=== PATIENT | female | born 2005 | race African-American/Black ===

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

== ENCOUNTER 2024-04-04 22:00 | Emergency (ER) | payer OTHER ==
[~2024-04-04] VITALS: Ht 157.5 cm; Wt 50.0 kg
[~2024-04-04 22:00] MED LIST changes: -ALBU2.5V39 NEB; -GUAIFDM PO; +NYST30CR9 TP; +OSEL75 PO; -PROM473S6 PO; -SERT-162 PO
[2024-04-04] MEDS ORDERED: LEVALBUTEROL 1.25 MG/0.5 ML NEB SOLUTION NEB ONE (22:15)
[2024-04-04] MEDS ORDERED: ALBUTEROL SULFATE 2.5 MG/0.5 ML 5 ML NEB SOLUTION NEB ONE (22:15)
[2024-04-04] MEDS: IPRATROPIUM BROMIDE 0.5 MG/2.5 ML NEB SOLUTION NEB ONE (22:26)
[2024-04-04] MEDS: SODIUM CHLORIDE 0.9% 1,000 ML IV ONE (22:27)
[2024-04-04] MEDS: LEVALBUTEROL 1.25 MG/0.5 ML NEB SOLUTION NEB ONE (22:27)
[2024-04-04 22:30] VITALS: PULSE 127; RESP 24; O2SAT 89
[2024-04-04] MEDS: MethylPREDNISolone SOD SUCC 125 MG/2 ML VIAL IVP ONE (22:30)
[2024-04-04 23:07] VITALS: BP 129/79; TEMP 98
[2024-04-04 23:30] VITALS: PULSE 125; RESP 22; O2SAT 98
[2024-04-04] MEDS: ALBUTEROL SULFATE HFA 90 MCG/PUFF 8 GM INHALER IH ONE (23:36)
[2024-04-04 23:40] VITALS: PULSE 123; RESP 22; O2SAT 97
[2024-04-04] MEDS ORDERED: ALBU18HF12 IH (23:41)
== END 2024-04-04 23:47 | disposition left against medical advice (07) ==
LOC: EMS 22:01
DX: J45.901 Unspecified asthma with (acute) exacerbation (principal); F32.A Depression, unspecified; F12.90 Cannabis use, unspecified, uncomplicated; Z91.010 Allergy to peanuts
CPT/HCPCS: 99291; 96374; 96361; 94640; 71045; 93005; J2919; J3535; 94644; Q9967; Z7610

== ENCOUNTER 2024-04-28 12:06 | Emergency (ER) | payer OTHER ==
[~2024-04-28] VITALS: Ht 154.9 cm; Wt 50.0 kg
[~2024-04-28 12:06] MED LIST changes: +ARIP2TAB27 PO; +BENZ100C68 PO; +DIVA-112 PO; +LEVO-72 PO; +LITH300C3 PO; +MONT-35 PO; -OSEL75 PO
[2024-04-28 12:12] VITALS: BP 112/68; PULSE 110; RESP 18; TEMP 98.1
[2024-04-28 12:44] LABS: BASOPHILS % (AUTO) 0.7 % (0.0-2.0); EOSINOPHILS % (AUTO) 6.9 % (1.0-6.0); HEMATOCRIT 38.6 % (36-46); HEMOGLOBIN 12.5 g/dL (12.0-16.0); LYMPHOCYTES # (AUTO) 2.3 K/uL (1.0-4.8); LYMPHOCYTES % (AUTO) 43.2 % (22.0-44.0); MEAN CORPUSCULAR HEMOGLOBIN 30.6 pg (26.0-34.0); MEAN CORPUSCULAR HGB CONC 32.5 G/dL (31.0-37.0); MEAN CORPUSCULAR VOLUME 94 fL (80-100); MONOCYTES # (AUTO) 0.4 K/uL (0.1-1.0); MONOCYTES % (AUTO) 8.4 % (2.0-9.0); NEUTROPHILS # (AUTO) 2.1 K/uL (1.8-7.7); NEUTROPHILS % (AUTO) 40.8 % (40.0-70.0); PLATELET COUNT (AUTO) 241 K/uL (150-450); RED CELL DISTRIBUTION WIDTH 15.5 % (11.5-14.5); WHITE BLOOD COUNT (AUTO) 5.2 K/uL (4.5-11.0)
[2024-04-28 12:56] LABS: ANION GAP 10 mmol/L (8-16); CALCIUM, TOTAL 8.6 mg/dL (8.8-10.5); CARBON DIOXIDE 27 mmol/L (22-29); CHLORIDE 112 mmol/L (98-107); CREATININE 0.75 mg/dL (0.60-1.30); GLOMERULAR FILTR. RATE CALC > 60 mL/min (>60); GLUCOSE,RANDOM 84 mg/dL (70-110); POTASSIUM 4.1 mmol/L (3.5-5.1); SODIUM SERUM 148 mmol/L (136-145); UREA NITROGEN, BLOOD 4 mg/dL (7-18)
[2024-04-28 12:59] LABS: ALCOHOL, BLOOD (SERUM) 6 mg/dL (0-10)
== END 2024-04-28 13:22 | disposition left against medical advice (07) ==
LOC: EMS 12:06
DX: R42 Dizziness and giddiness (principal); F32.A Depression, unspecified; R44.1 Visual hallucinations; Z79.899 Other long term (current) drug therapy; Z53.21 Procedure and treatment not carried out due to patient leaving prior to being seen by health care provider
CPT/HCPCS: 36415; 80048; 85025; 84703; G0480

== ENCOUNTER 2024-09-12 18:41 | Emergency (ER) | payer OTHER ==
[~2024-09-12] VITALS: Ht 160 cm; Wt 52.3 kg
[2024-09-12] MEDS: HYDROmorphone HCL 2 MG/ML SYRINGE IVP ONE (19:57)
[2024-09-12] MEDS: FAMOTIDINE 20 MG/2 ML VIAL IVP ONE (19:57)
[2024-09-12 20:02] VITALS: TEMP 98
[2024-09-12 20:03] LABS: BASOPHILS % (AUTO) 0.7 % (0.0-2.0); EOSINOPHILS % (AUTO) 2.6 % (1.0-6.0); HEMOGLOBIN 11.5 g/dL (12.0-16.0); LYMPHOCYTES % (AUTO) 24.7 % (22.0-44.0); MEAN CORPUSCULAR HEMOGLOBIN 30.9 pg (26.0-34.0); MEAN CORPUSCULAR HGB CONC 32.9 G/dL (31.0-37.0); MEAN CORPUSCULAR VOLUME 94 fL (80-100); MONOCYTES # (AUTO) 0.5 K/uL (0.1-1.0); MONOCYTES % (AUTO) 5.6 % (2.0-9.0); NEUTROPHILS # (AUTO) 5.3 K/uL (1.8-7.7); NEUTROPHILS % (AUTO) 66.4 % (40.0-70.0); PLATELET COUNT (AUTO) 331 K/uL (150-450); RED BLOOD CELL COUNT(AUTO) 3.73 MIL/uL (4.00-5.20); RED CELL DISTRIBUTION WIDTH 14.1 % (11.5-14.5); WHITE BLOOD COUNT (AUTO) 8.1 K/uL (4.5-11.0)
[2024-09-12] MEDS: CAPSAICIN 0.075% 60 GM CREAM TP ONE (20:04)
[2024-09-12 20:26] LABS: ANION GAP 13 mmol/L (8-16); CALCIUM, TOTAL 8.8 mg/dL (8.8-10.5); CARBON DIOXIDE 23 mmol/L (22-29); CHLORIDE 102 mmol/L (98-107); CREATININE 0.55 mg/dL (0.60-1.30); GLOMERULAR FILTR. RATE CALC > 60 mL/min (>60); GLUCOSE,RANDOM 71 mg/dL (70-110); POTASSIUM 3.6 mmol/L (3.5-5.1); SODIUM SERUM 138 mmol/L (136-145); UREA NITROGEN, BLOOD 4 mg/dL (7-18)
[2024-09-12 20:27] LABS: LIPASE 15 U/L (16-77)
[2024-09-12 20:32] LABS: APPEARANCE,URINE CLEAR (CLEAR); BILIRUBIN,URINE NEGATIVE (NEGATIVE); COLOR,URINE LIGHT YELLOW (YELLOW); GLUCOSE, URINE (UA) NEGATIVE (NEGATIVE); KETONES,URINE 80-100 mg/dL (NEGATIVE); LEUKOCYTE ESTERASE ,URINE NEGATIVE (NEGATIVE); NITRATE,URINE NEGATIVE (NEGATIVE); OCCULT BLOOD,URINE SMALL (NEGATIVE); PROTEIN,URINE TRACE mg/dL (NEGATIVE); SPECIFIC GRAVITIY, URINE 1.031 (1.003-1.030); UROBILINOGEN,URINE <=1.0 mg/dL (<=1.0)
[2024-09-12 20:50] LABS: BACTERIA,URINE None Seen /HPF (None Seen); RBC,URINE 0-2 /HPF (0-2)
[2024-09-12] MEDS: OxyCODONE HCL/ACETAMINOPHEN 5-325 MG TABLET PO ONE (20:53)
[2024-09-12 20:57] LABS: HCG,QUANTITATIVE < 1 mIU/mL (0-6)
[2024-09-12 21:09] VITALS: BP 109/62; PULSE 74; RESP 18; O2SAT 98
== END 2024-09-12 21:30 | disposition home or self-care (01) ==
LOC: EMS 18:41
DX: R10.13 Epigastric pain (principal); J45.909 Unspecified asthma, uncomplicated; F20.9 Schizophrenia, unspecified; F32.A Depression, unspecified; F41.9 Anxiety disorder, unspecified; F12.90 Cannabis use, unspecified, uncomplicated; Z91.010 Allergy to peanuts; Z79.52 Long term (current) use of systemic steroids; Z79.899 Other long term (current) drug therapy
CPT/HCPCS: 99285; 96374; 76705; 96375; 80048; 81001; 83690; 84702; 85025; 36415; J3490; J1171

== ENCOUNTER 2024-09-25 11:50 | Emergency (ER) | payer OTHER ==
[~2024-09-25] VITALS: Ht 162.6 cm; Wt 50.9 kg
[~2024-09-25 11:50] MED LIST changes: -BENZ100C68 PO; -LEVO-72 PO; -PRED-554 PO
[2024-09-25 12:00] VITALS: BP 121/86; PULSE 84; RESP 16; TEMP 98.8; O2SAT 98
[2024-09-25 13:04] LABS: APPEARANCE,URINE HAZY (CLEAR); BILIRUBIN,URINE NEGATIVE (NEGATIVE); COLOR,URINE YELLOW (YELLOW); GLUCOSE, URINE (UA) NEGATIVE (NEGATIVE); KETONES,URINE NEGATIVE (NEGATIVE); LEUKOCYTE ESTERASE ,URINE NEGATIVE (NEGATIVE); NITRATE,URINE NEGATIVE (NEGATIVE); OCCULT BLOOD,URINE NEGATIVE (NEGATIVE); PROTEIN,URINE TRACE mg/dL (NEGATIVE); SPECIFIC GRAVITIY, URINE 1.026 (1.003-1.030); UROBILINOGEN,URINE <=1.0 mg/dL (<=1.0)
[2024-09-25 13:14] LABS: ALCOHOL, URINE DRUG SCREEN NEGATIVE (NEGATIVE); AMPHET/METH SCREEN,URINE NEGATIVE (NEGATIVE); BARBITURATE SCREEN, URINE NEGATIVE (NEGATIVE); BENZODIAZEPINES SCREEN,URINE NEGATIVE (NEGATIVE); CANNABINOID SCREEN,URINE POSITIVE (NEGATIVE); COCAINE SCREEN,URINE NEGATIVE (NEGATIVE); METHADONE SCREEN, URINE NEGATIVE (NEGATIVE); PHENCYCLIDINE SCREEN,URINE NEGATIVE (NEGATIVE)
[2024-09-25 13:24] LABS: OPIATE SCREEN,URINE NEGATIVE (NEGATIVE)
== END 2024-09-25 13:30 | disposition left against medical advice (07) ==
LOC: EMS 11:54
DX: R10.9 Unspecified abdominal pain (principal); R11.2 Nausea with vomiting, unspecified; J45.909 Unspecified asthma, uncomplicated; F12.90 Cannabis use, unspecified, uncomplicated; F41.9 Anxiety disorder, unspecified; F20.9 Schizophrenia, unspecified; F32.A Depression, unspecified; Z79.899 Other long term (current) drug therapy
CPT/HCPCS: 80307; 81003; 99283

== ENCOUNTER 2024-11-08 13:10 | Emergency (ER) | payer OTHER ==
[~2024-11-08] VITALS: Ht 160 cm; Wt 49.0 kg
[2024-11-08 13:35] VITALS: BP 125/107; TEMP 98.6
[2024-11-08] MEDS ORDERED: 0.9% SODIUM CHLORIDE 5 ML NEB SOLUTION NEB ONE (13:50)
[2024-11-08] MEDS: ALBUTEROL SULFATE 2.5 MG/0.5 ML 5 ML NEB SOLUTION NEB ONE (13:56)
[2024-11-08] MEDS: IPRATROPIUM BROMIDE 0.5 MG/2.5 ML NEB SOLUTION NEB ONE (13:56)
[2024-11-08] MEDS: ALBUTEROL SULFATE HFA 90 MCG/PUFF 8 GM INHALER IH ONE (13:56)
[2024-11-08 14:05] VITALS: PULSE 91; RESP 18; O2SAT 96
[2024-11-08] MEDS: MORPHINE SULFATE 2 MG/ML SYRINGE IVP ONE (14:10)
[2024-11-08] MEDS: MethylPREDNISolone SOD SUCC 125 MG/2 ML VIAL IVP ONE (14:11)
[2024-11-08] MEDS: ACETAMINOPHEN 1000 MG/ISO-OSM 100 ML IV ONE (14:11)
== END 2024-11-08 14:49 | disposition left against medical advice (07) ==
LOC: EMS 13:14
DX: J45.901 Unspecified asthma with (acute) exacerbation (principal); F32.A Depression, unspecified; F20.9 Schizophrenia, unspecified; Z79.899 Other long term (current) drug therapy; F12.90 Cannabis use, unspecified, uncomplicated; Z91.010 Allergy to peanuts; Z91.048 Other nonmedicinal substance allergy status; Z91.018 Allergy to other foods
CPT/HCPCS: 99284; 96365; 71045; 96375; 94640; 93005; J2919; J0131; J3535; 94644; 96374; J2270